=== PATIENT | male | born 1995 | race Caucasian/White ===

== ENCOUNTER 2018-02-26 20:15 | Emergency (ER) | payer SELFPAY ==
--- NOTE | 2018-02-26 20:29 | ER Report ---
History and Physical Time Seen By MD: 20:28 Hx. of Stated Complaint: pt has large hives on left thigh and on left hand. Pt took 4 benadryl today. HPI/ROS CHIEF COMPLAINT: Hives HISTORY OF PRESENT ILLNESS: 22-year-old male patient presents to emergency room with complaint of hives. Patient states that he has been having hives intermittently for the past month. He states that he has not had any changes in soaps, laundry detergent, lotions or diet. Patient states that historically had problems with chocolate and that they've caused hives in the past. He states that seemed to resolve that time he was 12 and then returned about the time that he was 18. States the last time he had that so that last about 6 months and then resolved again. Patient states that he has been eating a little bit of chocolate but not as much as he normally does. He states that when these hives, they can to get bigger and then will start shrinking down and resolve on their own. Patient states that they do itch occasionally, but not all the time. He denies having any fevers, chills, nausea, vomiting or diarrhea. Patient states that he has taken Benadryl for this with no improvement. Patient states he did have difficulty swallowing yesterday and lives and is likely related the hives. He did take some Benadryl which seemed to help. Allergies: Coded Allergies: Fish Containing Products (Verified Allergy, Intermediate, hives, 02/26/18) egg (Verified Allergy, Intermediate, hives, 02/26/18) Home Meds Active Scripts Prednisone (PREDNISONE) 20 Mg Tablet, 40 MG PO DAILY, #8 TAB Prov:JUVENTINO WILLIS 02/26/18 Past Medical/Surgical History Patient has a past medical history of frequent hives. Patient denies any surgical history. Reviewed Nurses Notes: Yes Hx Substance Use Disorder: No Hx Alcohol Use: No Constitutional Vital Sign - Last 24 Hours 02/26/18 02/26/18 20:22 20:55 Temp 98.3 Pulse 106 98 Resp 16 B/P (MAP) 141/88 114/76 (89) Pulse Ox 97 95 O2 Delivery Room Air Physical Exam General appearance: Alert no distress. Respiratory: Chest is non tender, lungs are clear to auscultation. Cardiac: Regular rate and rhythm. Skin: Patient has large hive on left hip as well as one on the left hand. Both are blanching. There is no erythema or warmth noted. DIFFERENTIAL DIAGNOSIS: After history and physical exam differential diagnosis was considered for allergic reaction, hives, dermatitis. Medical Decision Making ED Course/Re-evaluation ED Course Patient was admitted to an exam room, history and physical were obtained. Differential diagnoses were considered. On examination patient does have large high to the left hip as well as one on the left hand. There is no areas of excoriation. They're not erythematous or warm to the touch. I'm unsure what the underlying cause. However with his history of having hives in the past pressure was chocolate do wonder if this is related to his diet. We will go ahead and put him on a burst of steroids significant resolve the inflammation. After that he is to apply lotion to the skin. I did discuss following up with maori liaison adviser to find out what the underlying cause of the allergic reaction is. I did give him information for Dr. Evans. He is to follow-up with Dr. Evans or with a primary care provider in the next week. He is to return to emergency room if condition worsens. Patient verbalized understanding and agreement with plan. Decision to Disposition Date: February 26, 2018 Decision to Disposition Time: 20:47 Depart Departure Latest Vital Signs Vital Signs Date Time Temp Pulse Resp B/P (MAP) Pulse Ox O2 Delivery O2 Flow Rate FiO2 02/26/18 20:55 98 114/76 (89) 95 02/26/18 20:22 98.3 16 Room Air Impression: Primary Impression: Hives Condition: Improved Disposition: HOME OR SELF-CARE New Scripts Prednisone (PREDNISONE) 20 Mg Tablet 40 MG PO DAILY, #8 TAB Prov: JUVENTINO WILLIS 02/26/18 Patient Instructions: Urticaria (ED) Additional Instructions: Monitor for possible trigger. Consider following up with a primary care provider or an maori liaison adviser after this has improved. Return to the ER if condition worsens. Take the medication as prescribed. [facility] Dr. Evans [address] [place], [place] JUVENTINO WILLIS February 26, 2018 20:29
[2018-02-26] MEDS ORDERED: PRED20TA6 PO (20:44)
[2018-02-26] MEDS ORDERED: predniSONE 20 MG TAB PO ONE (20:45)
[2018-02-26 20:55] VITALS: BP 114/76
== END 2018-02-26 20:59 | disposition home or self-care (01) ==
LOC: ER 20:37
DX: L50.9 Urticaria, unspecified (principal)
CPT/HCPCS: 99282; J7512

== ENCOUNTER 2018-02-28 09:00 | Emergency (ER) | payer SELFPAY ==
[~2018-02-28 09:00] MED LIST: PRED20TA6 PO
[2018-02-28] MEDS ORDERED: DIPH-740 PO (09:08)
[2018-02-28] MEDS ORDERED: NS(*) 0.9% 1000 ML BAG 1,000 ML IV ONE (09:21)
[2018-02-28] MEDS ORDERED: diphenhydrAMINE 50 MG/ML VIAL IVP ONE (09:25)
[2018-02-28] MEDS ORDERED: FAMOTIDINE(*) 20MG/50ML PREMIX 50 ML IVPB ONE (09:25)
--- NOTE | 2018-02-28 09:54 | ER Report ---
History and Physical Time Seen By MD: 09:15 Hx. of Stated Complaint: PT STARTED PREDNISONE 2 DAYS AGO AND L SIDE THUMB STARTED SWELLING LAST NIGHT AND FEELS NUMB; SINCE PREEDNISONE HAS ALSO HAD HEADACHES AND L ARM SORENESS HPI/ROS CHIEF COMPLAINT: Left thumb swelling, lower extremity rash consistent with erythema multiforme HISTORY OF PRESENT ILLNESS: Patient is a 22-year-old male here with complaints of suspected allergic reaction to the past 2 weeks. Patient was started on prednisone 2 days ago and started developing a rash with circular pattern consistent with erythema multiforme today as well as left thumb swelling. Patient has been taking Benadryl for symptom management. Patient denies fevers, chills, chest pain, shortness of breath, nausea, vomiting Allergies: Coded Allergies: Fish Containing Products (Verified Allergy, Intermediate, hives, 02/26/18) egg (Verified Allergy, Intermediate, hives, 02/26/18) Home Meds Active Scripts Prednisone (PREDNISONE) 20 Mg Tablet, 40 MG PO DAILY, #8 TAB Prov:JUVENTINO WILLIS COOKING TEACHER 02/26/18 Reported Medications Diphenhydramine Hcl (BENADRYL) 25 Mg Capsule, 25 MG PO Q6-8H, CAPSULE 02/28/18 Hx Substance Use Disorder: No Hx Alcohol Use: No Constitutional Vital Sign - Last 24 Hours 02/28/18 09:05 Temp 97.8 Pulse 70 Resp 16 B/P (MAP) 124/67 Pulse Ox 95 O2 Delivery Room Air Physical Exam General appearance: [Alert no distress.] Respiratory: Chest is non tender, lungs are clear to auscultation. Cardiac: Regular rate and rhythm Skin: + Circular rash of the RLE and back (consistent with erythema multiforme) DIFFERENTIAL DIAGNOSIS: After history and physical exam differential diagnosis was considered for environmental allergy, medication allergy, contact dermatitis Medical Decision Making ED Course/Re-evaluation ED Course Patient is a 22-year-old male here with complaints of new onset rash of the back and lower extremities. Patient reports having allergies of unknown etiology starting approximately 2 weeks ago. He started taking prednisone empirically 2 days ago and continues to take Benadryl last dose was yesterday. Patient does not have any respiratory involvement, lungs are clear to auscultation, abdomen soft nontender. Rashes consistent with erythema multiforme. Patient is well-appearing and in no acute distress at time of evaluation. Patient was given H2 gato, Benadryl and a liter of fluids and advised to continue taking prednisone and Benadryl. Decision to Disposition Date: Feb 28, 2018 Decision to Disposition Time: 09:51 Depart Departure Latest Vital Signs Vital Signs Date Time Temp Pulse Resp B/P (MAP) Pulse Ox O2 Delivery O2 Flow Rate FiO2 02/28/18 09:05 97.8 70 16 124/67 95 Room Air Impression: Primary Impression: Erythema multiforme Condition: Condition Unchanged Disposition: HOME OR SELF-CARE Patient Instructions: Acute Rash (ED) Additional Instructions: Please continue to take Benadryl and prednisone until completion. Please return promptly if you develop fevers, chills, difficulty breathing, nausea, vomiting, worsening rash. KIKI HUNTER DO Feb 28, 2018 09:54
--- NOTE | 2018-02-28 10:16 | RADIOLOGY IMAGING REPORT ---
FACILITY: [facility] [place] PATIENT NAME: Mason Mesa : 1995 MR: [id number] V: [id number] EXAM DATE: ORDERING PHYSICIAN: KIKI HUNTER TECHNOLOGIST: Location: [facility] [place] Patient: Mason Mesa : 1995 Visit/Account:[id number] Date of Sevice: 02/28/2018 Exam type: FINGER LEFT THUMB History: swelling Comparison: None. Findings: Three views of the left thumb were submitted. On the oblique view there suggestion of a fracture thr ough the proximal volar aspect of the distal phalanx of the left thumb extending to the articular nely face. This was not well-seen on the additional images. IMPRESSION: 1. On the oblique view there suggestion of an oblique fracture through the volar aspect of the base of the distal phalanx of the left thumb extending to the articular surface. No history of trauma was provided therefore the chronicity of this finding will require clinical correlation. Report Dictated By: Rosanna Buenrostro MD at 02/28/2018 9:58 AM Report E-Signed By: Rosanna Buenrostro MD at 02/28/2018 10:13 AM WSN:[id number]
[2018-02-28 10:29] VITALS: BP 110/78
== END 2018-02-28 10:44 | disposition home or self-care (01) ==
LOC: ER 09:00
DX: L51.9 Erythema multiforme, unspecified (principal)
CPT/HCPCS: 73140; 96361; 96365; 96375; 99284; J1200; J3490; J7030

== ENCOUNTER 2018-03-03 18:28 | Emergency (ER) | payer SELFPAY ==
[~2018-03-03 18:28] MED LIST changes: +DIPH-740 PO
--- NOTE | 2018-03-03 18:41 | ER Report ---
History and Physical Time Seen By MD: 18:41 Hx. of Stated Complaint: pt presents with swelling to both hands and raised red areas that do not itch. pt has been taking prednisone for 1 weeks for dx of allergic reaction HPI/ROS CHIEF COMPLAINT: Rash HISTORY OF PRESENT ILLNESS: This is a 22-year-old male who presents to the emergency department for a rash. Patient was seen several days ago in the emergency department for an allergic reaction. Patient was sent home with a prescription for prednisone, has one dose left however the patient states that he feels the prednisone is causing some of the swelling in his hands. Patient also states that the eyes seem more sporadic and they have coalesced in a couple of places. Patient denies shortness of breath or chest pain. No headaches , no nausea or vomiting. Patient states that he is just very anxious about the hives and why they continue to return. REVIEW OF SYSTEMS: Respiratory: No cough, no dyspnea. Cardiovascular: No chest pain, no palpitations. Gastrointestinal: No vomiting, no abdominal pain. Musculoskeletal: No back pain. Integumentary: As above. Allergies: Coded Allergies: Fish Containing Products (Verified Allergy, Intermediate, hives, 03/03/18) egg (Verified Allergy, Intermediate, hives, 03/03/18) Home Meds Active Scripts Epinephrine (EPIPEN 2-NEHA) 0.3 Mg/0.3 Ml Pen.injctr, 0.3 MG IM PRN, #1 PACK 0 Refills Prov:MARLON LIANG [facility] 03/03/18 Prednisone (PREDNISONE) 20 Mg Tablet, 40 MG PO DAILY, #8 TAB Prov:JUVENTINO WILLIS [facility] 02/26/18 Reported Medications Diphenhydramine Hcl (BENADRYL) 25 Mg Capsule, 25 MG PO Q6-8H, CAPSULE 02/28/18 Past Medical/Surgical History Patient has a past medical and surgical history of vision problems, wears glasses, history of allergies male gender with hives, high anxiety. Reviewed Nurses Notes: Yes Hx Substance Use Disorder: No Hx Alcohol Use: No Constitutional Vital Sign - Last 24 Hours 03/03/18 03/03/18 18:32 19:18 Temp 99.7 Pulse 121 Resp 20 B/P (MAP) 148/114 123/99 (107) Pulse Ox 96 O2 Delivery Room Air Physical Exam General Appearance: The patient is alert, has no immediate need for airway protection and no current signs of toxicity. Eyes: Pupils equal and round no injection. Respiratory: Chest is non tender, lungs are clear to auscultation. Cardiac: regular rate and rhythm. Gastrointestinal: Abdomen is soft and non tender, no masses, bowel sounds normal. Musculoskeletal: Neck: Neck is supple and non tender. Extremities have full range of motion and are non tender. Skin: Blanchable hives to the arms, sides and back, varying in size the largest on the left upper forearm has coalesced. DIFFERENTIAL DIAGNOSIS: After history and physical exam differential diagnosis was considered for allergic reaction unknown etiology. Medical Decision Making ED Course/Re-evaluation ED Course The patient was omitted to room. A history and physical were obtained. Differential diagnoses were considered. After a lengthy discussion with patient and his significant other the patient finally did tell me that he was concerned that the prednisone is actually causing the hives and swelling to the hands as it seems according to the patient that every time he takes the prednisone he has increased swelling of the hands bilaterally as well as an increase in the number of hives. The patient only has one prednisone pill left I did tell him that if he feels that this is causing the swelling to the hands and increasing the number of hives then to go ahead and not take the last dose and we will try an alternate route. I did instruct the patient to continue taking 25-50 mg of Benadryl every 4-6 hours as needed in addition to this take 10 mg Zyrtec daily for the next 15 days as well as 20 mg famotidine for the next 15 days area I also sent a prescription in for an EpiPen patient is not symptomatic for anaphylaxis at this time but I encouraged him to fill this as he is not entirely sure what the cause of his reactions are. the patient to follow-up with Dr. Seaman for allergy testing as soon as possible. The patient was in agreement with this plan of care and no other questions at this time and was discharged home. Patient was also encouraged to establish primary care provider here locally and return to the emergency department for any other concerns or worsening symptoms. Decision to Disposition Date: Mar 03, 2018 Decision to Disposition Time: 19:06 Depart Departure Latest Vital Signs Vital Signs Date Time Temp Pulse Resp B/P (MAP) Pulse Ox O2 Delivery O2 Flow Rate FiO2 03/03/18 19:18 123/99 (107) 03/03/18 18:32 99.7 121 20 96 Room Air Impression: Primary Impression: Hives Condition: Improved Disposition: HOME OR SELF-CARE Referrals: RENA SEAMAN JR, MD 5 Days New Scripts Epinephrine (EPIPEN 2-NEHA) 0.3 Mg/0.3 Ml Pen.injctr 0.3 MG IM PRN, #1 PACK 0 Refills Prov: MARLON LIANG 03/03/18 Patient Instructions: General Allergic Reaction (ED), Urticaria (ED) Additional Instructions: Drink plenty of fluids. Get plenty of rest. Follow up with Dr. Seaman for allergy testing. Keep a food diary until you follow up with Dr. Seaman. Take benadryl 25-50mg every 4-6 hours as needed. Take Zyrtec 10mg a day for the next 15 days. Take Famotidine 20mg a day for the next 15 days. Return to the ED for any other concerns or worsening symptoms. Use the Epi pen for life threatening allergic reactions. MARLON LIANG-ASAD Mar 03, 2018 18:41
[2018-03-03] MEDS ORDERED: FAMOTIDINE 20 MG TAB PO ONE (19:05)
[2018-03-03] MEDS ORDERED: EPIN0.3P15 IM (19:07)
[2018-03-03 19:18] VITALS: BP 123/99
[2018-03-04] MEDS ORDERED: DEXA4TAB7 PO (19:37)
== END 2018-03-03 19:28 | disposition home or self-care (01) ==
LOC: ER 18:39
DX: L50.0 Allergic urticaria (principal)
CPT/HCPCS: 99283

== ENCOUNTER 2018-03-04 15:51 | Emergency (ER) | payer SELFPAY ==
[~2018-03-04 15:51] MED LIST changes: +EPIN0.3P15 IM
[2018-03-04 16:03] VITALS: BP 106/64
--- NOTE | 2018-03-04 16:03 | ER Report ---
History and Physical Time Seen By MD: 16:03 HPI/ROS CHIEF COMPLAINT: Shortness of breath HISTORY OF PRESENT ILLNESS: This is a 22-year-old male who presents to the emergency department for recurrent and non-resolving hives and shortness of breath. Patient was 1st evaluated in the emergency department February 26 for hives. Since then the patient has been seen 2 additional times for recurrent hives was started on prednisone, patient was here yesterday and thought that prednisone was causing the swelling however today not taking the prednisone the hives and swelling of the hands seemed to increase patient also became anxious this morning and had some chest pain and shortness of breath and was seen at the [facility] subsequently they sent him to the emergency department for reevaluation. The patient has systemic hives some of which have coalesced. Patient denies nausea, vomiting, dysuria or abdominal pain. No visual changes. REVIEW OF SYSTEMS: Constitutional: No fever, no chills. Eyes: No discharge. ENT: No sore throat. Cardiovascular: As above. Respiratory: As above. Gastrointestinal: No abdominal pain, no vomiting. Genitourinary: No hematuria. Musculoskeletal: No back pain. Skin: As above. Neurological: No headache. Allergies: Coded Allergies: Fish Containing Products (Verified Allergy, Intermediate, hives, 03/04/18) egg (Verified Allergy, Intermediate, hives, 03/04/18) wheat (Verified Allergy, Intermediate, 03/04/18) Home Meds Active Scripts Dexamethasone (Decadron) 4 Mg Tablet, 1 TAB PO DAILY for 7 Days, #7 TAB 0 Refills Prov:MARLON LIANGP-BC 03/04/18 Epinephrine (EPIPEN 2-NEHA) 0.3 Mg/0.3 Ml Pen.injctr, 0.3 MG IM PRN, #1 PACK 0 Refills Prov:MARLON LIANG WELLNESS INSTRUCTOR-BC 03/03/18 Reported Medications Diphenhydramine Hcl (BENADRYL) 25 Mg Capsule, 25 MG PO Q6-8H, CAPSULE 02/28/18 Discontinued Scripts Prednisone (PREDNISONE) 20 Mg Tablet, 40 MG PO DAILY, #8 TAB Prov:JUVENTINO WILLIS WELLNESS INSTRUCTOR 02/26/18 Past Medical/Surgical History Patient has a past medical and surgical history of vision problem, wears glasses , history of allergic reactions and hives was younger. Reviewed Nurses Notes: Yes Hx Substance Use Disorder: No Hx Alcohol Use: No Constitutional Vital Sign - Last 24 Hours 03/04/18 16:03 Temp 98.0 Pulse 115 Resp 16 B/P (MAP) 106/64 Pulse Ox 100 O2 Delivery Room Air Intake and Output 03/04/18 03/04/18 03/05/18 14:59 22:59 06:59 Intake Total 1050 ml Balance 1050 ml Physical Exam General Appearance: The patient is alert, has no immediate need for airway protection and no signs of toxicity. Eyes: Pupils equal and round no pallor or injection. ENT, Mouth: Mucous membranes are moist. Respiratory: There are no retractions, lungs are clear to auscultation. Cardiovascular: Regular rate and rhythm, no murmurs, clicks or rubs. Gastrointestinal: Abdomen is soft and non tender, no masses, bowel sounds normal. Neurological: Alert and oriented 4. Moving all cavities. Following all commands. No focal neuro deficits. Skin: Scattered hives on the arms, hands and trunk, some of the hives have coalesced. Coalesced hives and small amount of edema to the dorsum side of bilateral hands. Musculoskeletal: Neck is supple non tender. Extremities are nontender, nonswollen and have full range of motion. DIFFERENTIAL DIAGNOSIS: After history and physical exam differential diagnosis was considered for shortness of breath including but not limited to pulmonary infectious process, COPD, asthma, pulmonary embolus and congestive heart failure. Medical Decision Making Data Points Result Diagram: 03/04/18 1620 03/04/18 1620 Laboratory Hematology Test 03/04/18 16:20 Red Blood Count 6.36 M/uL (4.00-5.60) Mean Corpuscular Volume 80.9 fL (80.0-96.0) Mean Corpuscular Hemoglobin 27.9 pg (26.0-33.0) Mean Corpuscular Hemoglobin Concent 34.5 g/dL (32.0-36.0) Red Cell Distribution Width 15.6 % (11.5-14.5) Mean Platelet Volume 8.6 fL (7.2-11.1) Neutrophils (%) (Auto) 63.2 % (39.4-72.5) Lymphocytes (%) (Auto) 28.5 % (17.6-49.6) Monocytes (%) (Auto) 7.9 % (4.1-12.4) Eosinophils (%) (Auto) 0.2 % (0.4-6.7) Basophils (%) (Auto) 0.2 % (0.3-1.4) Nucleated RBC Relative Count (auto) 0.1 /100WBC Neutrophils # (Auto) 12.3 K/uL (2.0-7.4) Lymphocytes # (Auto) 5.5 K/uL (1.3-3.6) Monocytes # (Auto) 1.5 K/uL (0.3-1.0) Eosinophils # (Auto) 0.0 K/uL (0.0-0.5) Basophils # (Auto) 0.0 K/uL (0.0-0.1) Nucleated RBC Absolute Count (auto) 0.01 K/uL D-Dimer Quantitative (PE/DVT) 4.24 ug/ml (0-0.50) Sodium Level 138 mmol/L (137-145) Potassium Level 3.2 mmol/L (3.5-5.0) Chloride Level 99 mmol/L (98-107) Carbon Dioxide Level 26 mmol/L (22-30) Blood Urea Nitrogen 9 mg/dl (9-21) Creatinine 0.80 mg/dl (0.66-1.25) Glomerular Filtration Rate Calc > 60.0 Random Glucose 96 mg/dl (75-110) Calcium Level 8.9 mg/dl (8.4-10.2) Total Bilirubin 1.2 mg/dl (0.2-1.3) Aspartate Amino Transf (AST/SGOT) 28 U/L (0-35) Alanine Aminotransferase (ALT/SGPT) 48 U/L (0-56) Alkaline Phosphatase 114 U/L (0-126) Troponin I < 0.012 ng/ml Total Protein 7.4 gm/dl (6.3-8.2) Albumin 4.1 g/dl (3.5-5.0) Chemistry Test 03/04/18 16:20 White Blood Count 19.4 k/uL (4.5-11.0) Red Blood Count 6.36 M/uL (4.00-5.60) Hemoglobin 17.8 g/dL (14.0-18.0) Hematocrit 51.5 % (42.0-52.0) Mean Corpuscular Volume 80.9 fL (80.0-96.0) Mean Corpuscular Hemoglobin 27.9 pg (26.0-33.0) Mean Corpuscular Hemoglobin Concent 34.5 g/dL (32.0-36.0) Red Cell Distribution Width 15.6 % (11.5-14.5) Platelet Count 317 K/uL (150-450) Mean Platelet Volume 8.6 fL (7.2-11.1) Neutrophils (%) (Auto) 63.2 % (39.4-72.5) Lymphocytes (%) (Auto) 28.5 % (17.6-49.6) Monocytes (%) (Auto) 7.9 % (4.1-12.4) Eosinophils (%) (Auto) 0.2 % (0.4-6.7) Basophils (%) (Auto) 0.2 % (0.3-1.4) Nucleated RBC Relative Count (auto) 0.1 /100WBC Neutrophils # (Auto) 12.3 K/uL (2.0-7.4) Lymphocytes # (Auto) 5.5 K/uL (1.3-3.6) Monocytes # (Auto) 1.5 K/uL (0.3-1.0) Eosinophils # (Auto) 0.0 K/uL (0.0-0.5) Basophils # (Auto) 0.0 K/uL (0.0-0.1) Nucleated RBC Absolute Count (auto) 0.01 K/uL D-Dimer Quantitative (PE/DVT) 4.24 ug/ml (0-0.50) Glomerular Filtration Rate Calc > 60.0 Calcium Level 8.9 mg/dl (8.4-10.2) Total Bilirubin 1.2 mg/dl (0.2-1.3) Aspartate Amino Transf (AST/SGOT) 28 U/L (0-35) Alanine Aminotransferase (ALT/SGPT) 48 U/L (0-56) Alkaline Phosphatase 114 U/L (0-126) Troponin I < 0.012 ng/ml Total Protein 7.4 gm/dl (6.3-8.2) Albumin 4.1 g/dl (3.5-5.0) Coagulation Test 03/04/18 16:20 D-Dimer Quantitative (PE/DVT) 4.24 ug/ml EKG/Imaging EKG Interpretation 12 lead EKG: Time of EKG 1616. Rhythm: Sinus tachycardia, ventricular rate 116 bpm. [place]: Left QRS: normal ST segments: No ST depression or elevation identified. Imaging Location: [facility] [place] Patient: Mason Mesa : 1995 Visit/Account:[id number] Date of Sevice: 03/04/2018 CHEST PA AND LAT INDICATION: RESP DISTRESS COMPARISON: None available FINDINGS: Heart size within normal limits. There is no focal infiltrate or lobar consolidation. There is no pneumothorax or pleural effusion. IMPRESSION: 1. No acute cardiopulmonary process. Report Dictated By: Abhijit Logan at 03/04/2018 5:42 PM Report E-Signed By: Abhijit Logan at 03/04/2018 5:44 PM WSN:[id number] ED Course/Re-evaluation Clinical Indication for ER IV: Hydration, IV Access ED Course The patient was admitted to room. A history and physical were obtained. Differential diagnoses were considered. An IV was started. 20 mg IV famotidine given, 25 mg IV Benadryl, and 25 mg IV solu-Medrol. 4 mg IV Zofran. EpiPen. A CBC, CMP were obtained. A troponin and d-dimer were obtained. CBC showing a white count of 19.4 no left shift this is likely due to demargination from the steroid use and the inflammatory response. Chemistry unremarkable. A chest x- ray was negative. Patient did have a positive d-dimer. . the patient about the lab studies, I did tell him that with the shortness of breath and his symptoms that I was concerned about possible PE. Patient's was agreeable to a CTA which was negative for pulmonary embolus. EKG unremarkable. Patient was relieved with results. I didn't check the patient to follow-up with Dr. Seaman as previously discussed. The patient had no other questions or concerns at this time is discharged home. 03/04/2018 5:59:57 pm I did speak with the patient regarding his chest x-ray results and lab studies did tell him that his d-dimer was elevated which could indicate that there is a clot pursue with his symptoms I recommended a CT angiogram of the chest patient was in agreement with this plan of care. Decision to Disposition Date: Mar 04, 2018 Decision to Disposition Time: 19:35 Depart Departure Latest Vital Signs Vital Signs Date Time Temp Pulse Resp B/P (MAP) Pulse Ox O2 Delivery O2 Flow Rate FiO2 03/04/18 16:03 98.0 115 16 106/64 100 Room Air Impression: Primary Impression: Hives Additional Impression: Shortness of breath Condition: Improved Disposition: HOME OR SELF-CARE Referrals: RENA SEAMAN JR, MD New Scripts Dexamethasone (Decadron) 4 Mg Tablet 1 TAB PO DAILY for 7 Days, #7 TAB 0 Refills Prov: MARLON LIANG WELLNESS INSTRUCTOR-BC 03/04/18 Patient Instructions: Dyspnea (ED), General Allergic Reaction (ED), Urticaria ( ED) Additional Instructions: Drink plenty of water. Get plenty of rest. Continue with the medication regimented we discussed last night. At the Decadron 4 mg daily for the next [address] Seaman's office in the morning to schedule an appointment for allergy testing. Return to the ED for any other concerns or worsening symptoms. Problem Qualifiers MARLON LIANG WELLNESS INSTRUCTOR-BC Mar 04, 2018 16:03
[2018-03-04] MEDS ORDERED: NS(*) 0.9% 1000 ML BAG 1,000 ML IV ONE (16:06)
[2018-03-04] MEDS ORDERED: diphenhydr DIALYSIS 50 MG/ML IVP STA (16:06)
[2018-03-04] MEDS ORDERED: EPINEPHrine 0.3 MG SYR IM ONLY ONE (16:10)
[2018-03-04] MEDS ORDERED: FAMOTIDINE(*) 20MG/50ML PREMIX 50 ML IVPB ONE (16:10)
[2018-03-04] MEDS ORDERED: methylPREDNIS SUCC 125 MG/2ML IVP ONE (16:10)
--- NOTE | 2018-03-04 16:23 | EKG ---
FACILITY: [facility] - [place] PATIENT NAME: MIKY VALDEZ : [id number] MR: [id number] V: [id number] EXAM DATE: ORDERING PHYSICIAN: MARLON LIANG TECHNOLOGIST: Test Reason : Shortness of breath Blood Pressure : / mmHG Vent. Rate : 116 BPM Atrial Rate : 116 BPM P-R Int : 126 ms QRS Dur : 078 ms QT Int : 310 ms P-R-T Axes : 068 -83 061 degrees QTc Int : 430 ms Sinus tachycardia Left axis deviation Pulmonary disease pattern Abnormal ECG No previous ECGs available Confirmed by LESTER HINSON ([id number]) on 03/05/2018 6:29:50 AM Referred By: Confirmed By:LESTER HINSON
[2018-03-04] MEDS ORDERED: diphenhydrAMINE 50 MG/ML VIAL ONE (16:26)
[2018-03-04 16:33] LABS: PLATELET COUNT, AUTOMATED 317 K/uL (150-450)
[2018-03-04] MEDS ORDERED: ONDANSETRON 4 MG/2 ML VIAL IVP ONE (16:50)
--- NOTE | 2018-03-04 17:49 | RADIOLOGY IMAGING REPORT ---
FACILITY: [facility] [place] PATIENT NAME: Mason Mesa : 1995 MR: [id number] V: [id number] EXAM DATE: ORDERING PHYSICIAN: MARLON LIANG TECHNOLOGIST: Location: [facility] [place] Patient: Masno Mesa : 1995 Visit/Account:[id number] Date of Sevice: 03/04/2018 CHEST PA AND LAT INDICATION: RESP DISTRESS COMPARISON: None available FINDINGS: Heart size within normal limits. There is no focal infiltrate or lobar consolidation. There is no pneumothorax or pleural effusion. IMPRESSION: 1. No acute cardiopulmonary process. Report Dictated By: Abhijit Logan at 03/04/2018 5:42 PM Report E-Signed By: Abhijit Logan at 03/04/2018 5:44 PM WSN:[id number]
[2018-03-04] MEDS ORDERED: NS 0.9% 25 ML BAG 50 ML ONE (18:32)
[2018-03-04] MEDS ORDERED: IOPAMIDOL 76% 75 ML INFUS BTL 75 ML ONE (18:32)
--- NOTE | 2018-03-04 19:26 | RADIOLOGY IMAGING REPORT ---
FACILITY: [facility] - [place] PATIENT NAME: Mason Mesa : 1995 MR: [id number] V: [id number] EXAM DATE: ORDERING PHYSICIAN: MARLON LIANG TECHNOLOGIST: Location: [facility] Patient: Mason Mesa : 1995 Visit/Account:[id number] Date of Sevice: 03/04/2018 EXAMINATION: CT CHEST PULMONARY ANGIOGRAM COMPARISON: None available HISTORY: short of breath,chest pain, tachy, elevated d-dimer PROCEDURE: Pulmonary arterial phase imaging of the chest with 75 mL intravenous Isovue 370. Reconstru ction of the source data set includes multiplanar 2D in the sagittal and coronal planes, and 3D recon structed coronal slab MIP series. One of the following dose optimization techniques was utilized in the performance of this exam: Autom ated exposure control; adjustment of the mA and/or kV according to the patient's size; or use of an i terative reconstruction technique. Specific details can be referenced in the facility's radiology C T exam operational policy. FINDINGS: Pulmonary vasculature: There is good contrast opacification of the pulmonary arterial system. No pul monary embolism. Main pulmonary artery size is normal. Cardiac and mediastinum: Cardiac chamber size is normal. No pericardial effusion. No thoracic aortic aneurysm or dissection. There are a few calcified mediastinal and hilar lymph nodes suggestive of old granulomatous disease. No suspicious thoracic lymph node enlargement. Visualized thyroid is unremark able. Lungs and pleura: No focal consolidation or pulmonary nodule. No pneumothorax, pulmonary edema, or pl eural effusion. Airways: Negative. Upper abdomen: No evidence of acute disease within the visualized upper abdomen. Osseous structures: Negative. IMPRESSION: No pulmonary embolism or evidence of acute cardiopulmonary disease. Report Dictated By: Jeff Mark MD at 03/04/2018 7:13 PM Report E-Signed By: Jeff Mark MD at 03/04/2018 7:23 PM WSN:[id number]
[2018-03-04] MEDS ORDERED: DEXA4TAB7 PO (19:37)
== END 2018-03-04 20:00 | disposition home or self-care (01) ==
LOC: ER 15:59
DX: L50.9 Urticaria, unspecified (principal); R06.02 Shortness of breath; R79.1 Abnormal coagulation profile; I49.5 Sick sinus syndrome; R94.31 Abnormal electrocardiogram [ECG] [EKG]
CPT/HCPCS: 71046; 71275; 84484; 85025; 85379; 93005; 96365; 96372; 96375; 99284; J0171; J1200; J2930; J3490; J7030; Q9967; 82040; 82247; 82310; 82374; 82435; 82565; 82947; 84075; 84132; 84155; 84295; 84450; 84460; 84520

== ENCOUNTER 2018-03-05 10:52 | Emergency (ER) | payer SELFPAY ==
[~2018-03-05 10:52] MED LIST changes: +DEXA4TAB7 PO
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
[2018-03-05 11:39] LABS: PLATELET COUNT, AUTOMATED 350 K/uL (150-450)
[2018-03-05 13:31] VITALS: BP 119/69
== END 2018-03-05 13:45 ==
LOC: ER 11:14
DX: R45.851 Suicidal ideations (principal); R79.89 Other specified abnormal findings of blood chemistry
CPT/HCPCS: 36415; 80305; 80320; 80329; 81001; 82040; 82247; 82310; 82374; 82435; 82565; 82947; 83735; 84075; 84132; 84155; 84295; 84443; 84450; 84460; 84520; 85025; 99283

== ENCOUNTER 2018-03-05 13:26 | Inpatient (IN) | payer SELFPAY ==
[~2018-03-05] VITALS: Ht 165.1 cm; Wt 68.0 kg
[2018-03-05] MEDS ORDERED: MAG HYD/AL HYD/SIMETH 30ML UDC PO PRN (13:40)
[2018-03-05 15:18] VITALS: BP 132/89
[2018-03-05] MEDS ORDERED: EPINEPHrine 0.3 MG SYR IM ONLY PRN (15:45)
[2018-03-05] MEDS ORDERED: DEXAMETHASONE 4 MG TAB PO ONE (17:30)
[2018-03-05 17:38] VITALS: BP 139/76
[2018-03-05] MEDS ORDERED: hydrOXYzine PAMOATE 25 MG CAP PO ONE (20:50)
[2018-03-05 21:32] VITALS: BP 125/76
[2018-03-06 06:01] VITALS: BP 115/74
[2018-03-06 06:28] LABS: PLATELET COUNT, AUTOMATED 325 K/uL (150-450)
[2018-03-06] MEDS: MULTIVITAMINS TAB PO SCH (08:13)
[2018-03-06] MEDS ORDERED: PAROXETINE HCL 10 MG TABLET PO SCH (10:30)
[2018-03-06 13:54] VITALS: BP 147/80
[2018-03-06] MEDS: hydrOXYzine PAMOATE 25 MG CAP PO PRN (14:17)
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
[2018-03-06 17:52] VITALS: BP 121/80
[2018-03-06] MEDS ORDERED: hydrOXYzine PAMOATE 25 MG CAP PO PRN (21:35)
[2018-03-06 22:00] VITALS: BP 124/76
[2018-03-07 03:00] VITALS: BP 128/78
[2018-03-07] MEDS: hydrOXYzine PAMOATE 25 MG CAP PO PRN ×3 (03:04→11:53)
--- NOTE | 2018-03-07 04:03 | EKG ---
FACILITY: [facility] [place]IENT NAME: MIKY VALDEZ : [id number] MR: [id number] V: [id number] EXAM DATE: ORDERING PHYSICIAN: SONNY MUÑIZ TECHNOLOGIST: CLYDE Test Reason : REACTION Blood Pressure : / mmHG Vent. Rate : 138 BPM Atrial Rate : 138 BPM P-R Int : 124 ms QRS Dur : 072 ms QT Int : 296 ms P-R-T Axes : 066 189 040 degrees QTc Int : 448 ms Sinus tachycardia Right ventricular hypertrophy Abnormal ECG Confirmed by RYAN VYAS ([id number]) on 03/07/2018 6:34:12 AM Referred By: Confirmed By:RYAN VYAS
[2018-03-07] MEDS ORDERED: clonazePAM 0.5 MG ODT TABDP ONE (04:04)
[2018-03-07] MEDS ORDERED: DIAZEPAM 10 MG TAB PO ONE (06:55)
[2018-03-07] MEDS: PARoxetine HCL 20 MG TAB PO SCH ×2 (08:09→08:37)
[2018-03-07] MEDS: MULTIVITAMINS TAB PO SCH (08:09)
[2018-03-07] MEDS ORDERED: clonazePAM 0.5 MG ODT TABDP PO SCH (09:00)
[2018-03-07 11:49] VITALS: BP 119/85
[2018-03-07] MEDS ORDERED: PARO-243 PO (12:57)
[2018-03-07] MEDS ORDERED: MULT-1379 PO (12:58)
[2018-03-07] MEDS ORDERED: HYDR25CA83 PO (12:59)
[2018-03-07] MEDS ORDERED: DIAZ-308 PO (14:00)
[2018-03-07] MEDS ORDERED: DIA5 PO (14:01)
[2018-03-07] MEDS ORDERED: DIAZ-311 PO ×2 (14:03)
[2018-03-07 14:30] VITALS: BP 102/68
--- NOTE | 2018-03-10 16:26 | DISCHARGE SUMMARY ---
DATE OF ADMISSION: March 05, 2018 DATE OF DISCHARGE: March 07, 2018 Patient was seen in the a.m. of 07 March 2018 for note concerning this dictation at approximately 0900 hours. FINAL DIAGNOSES 1. Generalized anxiety disorder. 2. Cannabis use disorder. 3. Posttraumatic stress disorder, likely from childhood events. 4. Adjustment disorder with depressed mood. 5. The patient has a supportive relationship with significant other. REASON FOR ADMISSION This is a pleasant 22-year-old male who appears to be suffering from underlying anxiety disorder as primary diagnosis. Patient notably having no visits to the Emergency Room prior to February 26, 2018, then patient having six visits to the Emergency Room in the next week, culminating with an admission to Behavioral Health for suicidal ideation. Please see H and P for full details. Patient was initially coming to the Emergency Room for a rash that started about a month prior. Patient was seen in the Emergency Room multiple occasions, prescribed various remedies including steroids that did not seem to be completely beneficial. Patient having conflict with significant other. This combined with the significant hives reaction that the patient had resulted in suicidal thoughts. Again, please refer to notes. Patient was cooperative throughout his stay. Medications were started both for control of anxiety and hives. Patient continued to improve. Prednisone was discontinued. Suicidal ideations resolved. Relationship with significant other was in the state of repair upon discharge. PHYSICAL EXAMINATION Please see emergency room note. Notable for: GENERAL: A 22-year-old male who had been here on multiple occasions prior. SKIN: Patient having notable coalescing hives that at one point were diagnosed as erythema multiforme. PSYCHIATRIC: Patient anxious-appearing and was admitted to the Behavioral Health Unit without incident. VITAL SIGNS: At time of admission, temperature 98.5, pulse 79, respiratory rate 14, blood pressure 146/105, pulse oximetry 94 on room air. At time of discharge, temperature 98.9, pulse 135, patient asymptomatic, respiratory rate 16, blood pressure 102/68, pulse oximetry 94 on room air. LABORATORY DATA At time of admission, white blood cell count significantly elevated at 26.8. This was likely secondary to administration of steroids. RBCs 5.88 and elevated. Chemistry panel notable for random glucose 166 and elevated, ALT 64 and elevated, TSH 1.05, in normal range. Urinalysis was positive for urine protein and glucose. Urine urobilinogen 4.0, trace leukocyte esterase. Toxicology screen positive for cannabis, which patient admits to using. Patient adamantly and believably denying amphetamine use which was shown to be positive on drug screen as well. Serum alcohol level was nondetectable. Hemoglobin A1c was noted to be in normal range at 5.7. Free T4 was 1.24, free T3 of 2.8, both within normal range. Rheumatoid factor within normal range as well. RPR was nonreactive. Hepatitis panel for A, B, and C was unremarkable. Mycoplasma pneumoniae titer was in normal range as well. Herpes simplex virus was not detected. MENTAL STATUS EXAMINATION AT TIME OF DISCHARGE GENERAL APPEARANCE, BEHAVIOR, AND ATTITUDE: This is a 22-year-old male who was much calmer during exit interview. Patient present with significant other. They are interacting well together. Patient making good eye contact. No bizarre mannerisms or tics. Notably, rash had disappeared in intensity considerably at time of exit interview. No bizarre mannerisms or tics. SPEECH: Within normal limits. Regular rate, rhythm, volume, and tone. MOOD: Described as improved and calmer. AFFECT: Minimally constricted, mood congruent overall. THOUGHT PROCESSES: Seemed goal directed, patient adamantly wanting to discharge from the hospital, apparently logical. No loose associations or flight of ideas. THOUGHT CONTENT: Free of auditory or visual hallucinations, ideas of reference , thought broadcasting, delusions, obsessions, compulsions. Patient adamantly denying suicidal or homicidal ideations. SENSORIUM: Clear. COGNITION: Alert and oriented to person, place, time, and situation. MEMORY: Immediate, recent, and remote estimated intact. INTELLIGENCE: Average based on interview. INSIGHT AND JUDGMENT: Considered grossly intact in the absence of substance use. RESULTS OF TESTING IMAGING: None. LABORATORY DATA: See above. CONSULTATIONS None. TREATMENT Patient received medications, participated in individual and group therapy. HOSPITAL COURSE Patient overall anxious-appearing and demonstrating an underlying anxiety in generally, likely having PTSD from childhood traumatic events as well. Patient agreeing to stop smoking cannabis which could be the source of the allergens causing recent flare. Patient did participate, again, in treatment, took an active role in his treatment, and agreed to follow up with appropriate hospital services including principal secretary and possibly Dermatology upon discharge. CONDITION OF PATIENT ON DISCHARGE Stable, considered minimal risk to himself or others, appropriate for outpatient care. DISPOSITION Patient discharged to home in care of significant other. Patient had a business segment manager appointment as well as an principal secretary appointment here at the hospital. He had followup with [facility] for meds and therapy concerning psychiatric concerns. Crisis line was given should symptoms return. Patient would abstain from all illicit substances and alcohol. At time of discharge, patient was placed on: 1. Diazepam 10 mg at bedtime and diazepam 5 mg every six hours as needed for anxiety. 2. Benadryl 50 mg q.4 hours as needed for anxiety and allergen symptoms. 3. Patient would have EpiPen 0.3 mg to use intramuscularly as needed for severe allergic reaction. 4. Patient could take hydroxyzine 25 mg capsule one to two q.4 hours as needed for anxiety and rash. 5. Multivitamin with minerals. 6. Patient would remain on Paxil 20 mg q.a.m. daily. Risks, benefits, and alternatives of above discharge plan were discussed. Crisis line was given should symptoms return. Patient was accepting of above discharge plan as well as his significant other present at time of discharge. TRAVON
== END 2018-03-07 17:59 | disposition home or self-care (01) | DRG 880 ==
LOC: BHS 13:26
PROVIDERS: ADMIT Psychiatry & Neurology Psychiatry; ATTEND Psychiatry & Neurology Psychiatry
DX: F41.1 Generalized anxiety disorder (principal); R45.851 Suicidal ideations; F12.90 Cannabis use, unspecified, uncomplicated; F43.12 Post-traumatic stress disorder, chronic; F43.21 Adjustment disorder with depressed mood; L51.9 Erythema multiforme, unspecified; Z60.9 Problem related to social environment, unspecified; Z62.810 Personal history of physical and sexual abuse in childhood; Z91.5 Personal history of self-harm; Z81.1 Family history of alcohol abuse and dependence; Z81.8 Family history of other mental and behavioral disorders; Z81.3 Family history of other psychoactive substance abuse and dependence; Z63.5 Disruption of family by separation and divorce
CPT/HCPCS: 36415; 80074; 82040; 82247; 82310; 82374; 82435; 82565; 82947; 83036; 84075; 84132; 84155; 84295; 84439; 84450; 84460; 84481; 84520; 85025; 85651; 86430; 86592; 86738; 87529; 93005; J0171; J8540; Q0177